=== PATIENT | male | born 1945 | race Caucasian/White ===

== ENCOUNTER → 2017-10-03 | Outpatient (CLI) | payer MEDICARE, BC ==
[~2017-10-03] MED LIST: ACET325; BACPOLTO30 TOP; BUDE32NIS; CALCIUM + D SO1 EACH; Calcium Carbon500 MG; Chondroitin Su250 MG; Crestor40 MG; DESL5 PO; FISH1000; GLUCOSAMINE1000 MG; IBUP400; LIDO5TP TOP; LOVA40; LOVA40 PO; NIAC500; NIAC500ER; OXYC5 PO; PANT40; PANT40 PO; PROP80ER; PROP80ER PO; Pantoprazole So40 MG PO; SUMA25 PO; TAMS.4ER; TAMS.4ER PO; TRIHYD253B; TRIHYD253B PO; TURMERIC COMPL1 EACH; VITAMIN B122500 MCG; VITAMIN D2000 UNIT
[2017-10-03 16:39] LABS: Influenza A Negative (NEGATIVE); Influenza B Positive (NEGATIVE)
== END ==
LOC: LAB SHORT 15:20
PROVIDERS: Nurse Practitioner Family
DX: B34.9 Viral infection, unspecified (principal)
CPT/HCPCS: 87804

== ENCOUNTER 2018-03-06 09:31 | Day surgery (SDC) | payer MEDICARE, BC ==
[~2018-03-06] VITALS: Ht 182.9 cm; Wt 98.9 kg
[~2018-03-06 09:31] MED LIST changes: -ACET325; -Calcium Carbon500 MG; -Crestor40 MG; -NIAC500ER; -Pantoprazole So40 MG PO; -TURMERIC COMPL1 EACH; -VITAMIN B122500 MCG; -VITAMIN D2000 UNIT
[2018-03-06] MEDS ORDERED: NIAC500ER (09:53)
[2018-03-06] MEDS ORDERED: Crestor40 MG (09:53)
[2018-03-06] MEDS ORDERED: VITAMIN B122500 MCG (09:54)
[2018-03-06] MEDS ORDERED: VITAMIN D2000 UNIT (09:54)
[2018-03-06] MEDS ORDERED: TURMERIC COMPL1 EACH (09:54)
[2018-03-06] MEDS ORDERED: ACET325 (09:55)
[2018-03-06] MEDS ORDERED: Calcium Carbon500 MG (09:55)
== END 2018-03-06 10:41 | disposition home or self-care (01) ==
LOC: ORSCSDS 09:31
PROVIDERS: Anesthesiology
PROC: 3E0R33Z Introduction of Anti-inflammatory into Spinal Canal, Percutaneous Approach (ICD-10-PCS; principal; 2018-03-06 10:30)
DX: M96.1 Postlaminectomy syndrome, not elsewhere classified (principal); M54.16 Radiculopathy, lumbar region; I10 Essential (primary) hypertension; K21.9 Gastro-esophageal reflux disease without esophagitis; E78.00 Pure hypercholesterolemia, unspecified; Z79.899 Other long term (current) drug therapy
CPT/HCPCS: J1040

== ENCOUNTER 2019-07-17 07:29 | Day surgery (SDC) | payer MEDICARE ==
[~2019-07-17] VITALS: Ht 182.9 cm; Wt 96.3 kg
[~2019-07-17 07:29] MED LIST changes: +ACET325; +AMLO10 PO; +CENTRUM SILVER1 EAC2 PO; +Calcium Carbon500 MG; +Crestor40 MG; +Crestor40 MG PO; +Dyazide 37.5-21 EACH PO; +GLUCOSAMINE CH1 EAC1 PO; +Imitrex100 MG PO; +LIDO700A20 TOP; +NIAC500ER; +NIACIN ER500 MG PO; +Pantoprazole So40 MG PO; +TOPI25 PO; +TURMERIC COMPL1 EACH; +VITAMIN B122500 MCG; +VITAMIN D2000 UNIT; +Vitamin D2000 UNIT PO
[2019-07-17] MEDS ORDERED: PANT40 (08:17)
== END 2019-07-17 09:19 | disposition home or self-care (01) ==
LOC: ORSCSDS 07:29
PROVIDERS: Surgery
PROC: 0DJD8ZZ Inspection of Lower Intestinal Tract, Via Natural or Artificial Opening Endoscopic (ICD-10-PCS; principal; 2019-07-17 08:45)
DX: Z12.11 Encounter for screening for malignant neoplasm of colon (principal); Z86.010 Personal history of colon polyps; K57.30 Diverticulosis of large intestine without perforation or abscess without bleeding; I10 Essential (primary) hypertension; K21.9 Gastro-esophageal reflux disease without esophagitis; Z79.899 Other long term (current) drug therapy
CPT/HCPCS: J0330; J0461; J2405; J2704; J7120

== ENCOUNTER → 2022-03-28 | Outpatient (CLI) | payer MEDICARE ==
[2022-03-28 18:11] LABS: BASOPHILS ABSOLUTE AUTO 0.06 K/mm3 (0.00-0.23); BASOPHILS PERCENT AUTO 1 % (0-2); EOSINOPHILS ABSOLUTE AUTO 0.15 K/mm3 (0.00-0.68); EOSINOPHILS PERCENT AUTO 2 % (0-6); Hemoglobin 15.3 g/dL (13.5-17.5); IMMATURE GRAN ABSOLUTE AUTO 0.02 K/mm3 (0.00-0.10); IMMATURE GRAN PERCENT AUTO 0 % (0-1); LYMPHOCYTES PERCENT AUTO 25 % (21-46); MONOCYTES ABSOLUTE AUTO 0.63 K/mm3 (0.16-1.47); MONOCYTES PERCENT AUTO 8 % (4-13); Mean Corpuscular HGB 28.9 pg (26.0-34.0); Mean Corpuscular HGB Conc 33.3 g/dL (31.5-36.5); Mean Corpuscular Volume 87 fL (80-100); Mean Platelet Volume 10.2 fL (9.1-12.4); NEUTROPHILS ABSOLUTE AUTO 5.43 K/mm3 (1.96-9.15); NEUTROPHILS PERCENT AUTO 65 % (41-73); Platelet Count 268 K/mm3 (150-400); RDW Standard Deviation 41.2 fL (35.1-46.3); Red Blood Cell Count 5.29 M/mm3 (4.30-5.90); White Blood Cell Count 8.39 K/mm3 (4.00-11.30)
[2022-03-28 18:27] LABS: Alanine Aminotransfer (ALT/SGP 33 U/L (12-78); Albumin, Blood 4.1 g/dL (3.4-5.0); Albumin/Globulin Ratio 1.2 (0.8-1.8); Alk Phos 62 U/L (50-136); Anion Gap 6 mmol/L (6-16); Aspartate Aminotrans (AST/SGOT 24 U/L (12-37); Bilirubin, Total 0.6 mg/dL (0.1-1.0); Blood Urea Nitrogen 15 mg/dL (8-24); Bun/Creatinine Ratio 13.4 (12.0-20.0); CHOL/HDL RATIO 2.5; CO2, Blood 26 mmol/L (21-32); Calcium, Blood 9.6 mg/dL (8.5-10.1); Chloride, Blood 109 mmol/L (98-108); Cholesterol 123 mg/dL (50-200); Creatinine, Blood 1.12 mg/dL (0.60-1.20); Globulin, Blood 3.3 g/dL (2.2-4.0); Glomerular Filtration Rate 68 (60-); Glucose, Blood 106 mg/dL (70-99); HDL Cholesterol 50 mg/dL (>39); LDL/HDL RATIO 0.4; Low Density Lipoprotein Chol 22 mg/dL (0-110); Potassium, Blood 3.3 mmol/L (3.5-5.5); Sodium, Blood 141 mmol/L (136-145); Total Protein, Blood 7.4 g/dL (6.4-8.2); Triglycerides 254 mg/dL (30-160); Very Low Density Lipoprot Chol 50 mg/dL (6-32)
== END | disposition home or self-care (01) ==
LOC: LAB SHORT 18:00 → LAB 18:00
PROVIDERS: Family Medicine
DX: E78.5 Hyperlipidemia, unspecified (principal); I10 Essential (primary) hypertension
CPT/HCPCS: 80053; 80061; 85025

== ENCOUNTER → 2024-12-16 | Outpatient (CLI) | payer MEDICARE ==
[2024-12-16 19:28] LABS: Bun/Creatinine Ratio 20.2 (12.0-20.0); Calcium, Blood 9.1 mg/dL (8.5-10.1); Creatinine, Blood 0.89 mg/dL (0.60-1.20); Potassium, Blood 3.7 mmol/L (3.5-5.5)
== END | disposition home or self-care (01) ==
LOC: LAB SHORT 17:04 → LAB 17:04
DX: I10 Essential (primary) hypertension (principal); E87.6 Hypokalemia
CPT/HCPCS: 80048